=== PATIENT | female | born 1955 | race Caucasian/White ===

== ENCOUNTER 2017-03-16 07:12 | Emergency (ER) | payer OTHER ==
--- NOTE | 2017-03-16 07:56 | PHYS DOC ---
General Chief Complaint: UPPER EXTREMITY INJURY Stated Complaint: UPPER EXTREMITY PAIN Time Seen by MD: 07:13 Source: patient Exam Limitations: no limitations Problems: History of Present Illness Initial Comments Patient is a 61-year-old female who comes to the ED complaining of right arm pain. Patient states that yesterday she slipped and fell on the ice, she describes falling backwards landing on her buttock's back right elbow and right shoulder. She's complaining of pain at the mid shaft of her right humerus, also complains that it hurts to move her right shoulder. She denies numbness tingling weakness or radiating symptoms, denies head trauma loss of consciousness headache or neck pain. She says her back was sore yesterday but those symptoms are better today. [id number] ibuprofen has not been helping her pain is described as sharp and throbbing worse with movement better with rest at its worst described as severe and the pain scale. At rest symptoms are mild. Onset: yesterday Severity: severe Pain/Injury Location: right shoulder, right arm, right elbow Method of Injury: fell (she is discharged in stable) Modifying Factors: worse with jarring, worse with movement, improves with rest Allergies: Coded Allergies: No Known Drug Allergies (Unverified , 03/16/17) Past Medical History Medical History: no pertinent history Surgical History: noncontributory Social History Smoker: non-smoker Alcohol: none Drugs: none Review of Systems Constitutional: denies chills, denies diaphoresis, denies fever, denies malaise Respiratory: denies cough, denies shortness of breath Cardiovascular: denies chest pain, denies palpitations, denies syncope Gastrointestinal: denies abdominal pain, denies nausea, denies vomiting Genitourinary: denies dysuria, denies frequency Musculoskeletal: see HPI Psychiatric/Neurological: see HPI Physical Exam General Appearance: WD/WN, mild distress HEENT: other (normocephalic atraumatic) Neck: non-tender, supple Back: normal inspection, no CVA tenderness, no vertebral tenderness Shoulder: bone tenderness, limited ROM, soft tissue tenderness (exquisite tenderness at the proximal humerus no obvious deformity range of motion not tested due to fracture extremity appears to be neurovascularly intact) Neurologic/Tendon: normal sensation, responds to pain, other (no tendinopathy noted however confrontational SITS testing not undertaken due to patient intolerance of the present of comminuted fracture) Psychiatric: alert, oriented x 3 Skin: normal color, warm/dry Orders, Labs, Meds PATIENT: RADHA GARCIA ACCOUNT: [id number] : 1955 LOCATION: ER AGE: 61 SEX: F EXAM STATUS: REG ER ORD. PHYSICIAN: WILDER MCGOWAN DO REASON: pain s/p fall PROCEDURE: ELBOW RIGHT 3V Right elbow, 3 views, 03/16/2017: History: Fall, pain The images are suboptimal due to difficulty in patient positioning related to pain. A good lateral view was not obtained. No elbow fracture or dislocation is evident on this limited exam. DICTATED AND SIGNED BY: BRIAN MONTERO MD DATE: 03/16/17809 CC: KRYSTINA LIU; WILDER MCGOWAN DO ~ PATIENT: RADHA GARCIA ACCOUNT: [id number] : 1955 LOCATION: ER AGE: 61 SEX: F EXAM STATUS: REG ER ORD. PHYSICIAN: WILDER MCGOWAN DO REASON: pain s/p fall PROCEDURE: HUMERUS RIGHT Right humerus, 2 views, 03/16/2017: History: Fall, pain There is a slightly comminuted fracture of the right humeral neck extending to involve the lateral aspect of the humeral head. The major fracture fragments are not significantly displaced. A small calcification along the superior aspect of the humeral head is probably of tendinous origin. Widening of the subacromial space with a low position of the humeral head is probably due to a large associated joint effusion. No distal humeral abnormality is detected. IMPRESSION: Comminuted fracture of the right humeral neck/head as described above. DICTATED AND SIGNED BY: BRIAN MONTERO MD DATE: 03/16/17806 CC: KRYSTINA LIU; WILDER MCGOWAN DO ~ 0845: I discussed the patient over the phone with on-call orthopedic surgeon Dr. Morataya. She has agreed to see the patient in her office at 10 AM today, a shoulder immobilizer will be placed and the patient has received [place] 10 mg as well as Zofran ODT 4 mg by mouth. I discussed this with the patient and she is agreeable. Departure Time of Disposition: 08:46 Disposition: 01 HOME, SELF-CARE Diagnosis: mechanical fall, comminuted fracture right humeral Condition: STABLE Patient Instructions: Shoulder Immobilizer Additional Instructions: Leave the shoulder immobilizer in place until evaluated by Dr. Morataya. Go directly to Dr. Morataya's office upon ED discharge without any detours, nothing to eat or drink. ED staff will give you directions to the doctor's office which is in the medical office building on the [facility]. Take your discharge paperwork including a disc of your images and give them to the executive receptionist. Return to ED with new or changing symptoms. WILDER MCGOWAN DO Mar 16, 2017 07:56
[2017-03-16] MEDS ORDERED: ACET-704 PO (08:04)
--- NOTE | 2017-03-16 08:12 | RAD ---
Right humerus, 2 views, 03/16/2017: History: Fall, pain There is a slightly comminuted fracture of the right humeral neck extending to involve the lateral aspect of the humeral head. The major fracture fragments are not significantly displaced. A small calcification along the superior aspect of the humeral head is probably of tendinous origin. Widening of the subacromial space with a low position of the humeral head is probably due to a large associated joint effusion. No distal humeral abnormality is detected. IMPRESSION: Comminuted fracture of the right humeral neck/head as described above.
--- NOTE | 2017-03-16 08:14 | RAD ---
Right elbow, 3 views, 03/16/2017: History: Fall, pain The images are suboptimal due to difficulty in patient positioning related to pain. A good lateral view was not obtained. No elbow fracture or dislocation is evident on this limited exam.
[2017-03-16] MEDS ORDERED: ONDANSETRON ODT 4 MG TAB.RAPDIS PO ONE (08:15)
[2017-03-16] MEDS ORDERED: HYDROcodone/APAP 10/325 1 TAB TABLET PO ONE (08:15)
[2017-03-16 09:50] VITALS: BP 142/90
== END 2017-03-16 09:50 | disposition home or self-care (01) ==
LOC: ER 07:12
DX: S42.291A Other displaced fracture of upper end of right humerus, initial encounter for closed fracture (principal); W00.0XXA Fall on same level due to ice and snow, initial encounter; Y93.89 Activity, other specified; Y99.8 Other external cause status; Y92.89 Other specified places as the place of occurrence of the external cause
CPT/HCPCS: 29105; 73060; 73080; 99284; Q0162

== ENCOUNTER 2020-12-03 11:25 | Emergency (ER) | payer MEDICARE, OTHER ==
[~2020-12-03] VITALS: Ht 162.6 cm; Wt 70.3 kg
[~2020-12-03 11:25] MED LIST: ACET-704 PO
[2020-12-03 12:02] VITALS: BP 187/90
[2020-12-03] MEDS ORDERED: ORPH-16 PO (12:11)
[2020-12-03] MEDS ORDERED: CLON0.1T PO (12:11)
--- NOTE | 2020-12-03 12:13 | PHYS DOC ---
Past History Past Medical History: No Pertinent History Past Surgical History: , Tubal ligation Alcohol Use: Occasionally Drug Use: None General Adult EDM: Chief Complaint: MULTIPLE COMPLAINTS HPI: HPI: Patient is a [age] year old [sex] who presents with [] Review of Systems: Review of Systems: Constitutional: Denies fever or chills Eyes: Denies redness or eye pain HENT: Denies nasal congestion or sore throat Respiratory: Denies cough or shortness of breath Cardiovascular: Denies chest pain or palpitations GI: Denies abdominal pain, nausea, or vomiting : Denies dysuria or hematuria Musculoskeletal: Denies back pain or joint pain Integument: Denies rash or skin lesions Neurologic: Denies headache, focal weakness or sensory changes Complete systems were reviewed and found to be within normal limits, except as documented in this note. Allergies: Allergies: Allergies Coded Allergies Type Severity Reaction Last Updated Verified No Known Drug Allergies 03/16/17 No Physical Exam: PE: Constitutional: Well developed, well nourished, no acute distress, non-toxic appearance. [] HENT: Normocephalic, atraumatic, bilateral external ears normal, oropharynx gaby st, no oral exudates, nose normal. [] Eyes: PERRLA, EOMI, conjunctiva normal, no discharge. [] Neck: Normal range of motion, no tenderness, supple, no stridor. [] Cardiovascular:Heart rate regular rhythm, no murmur [] Lungs & Thorax: Bilateral breath sounds clear to auscultation [] Abdomen: Bowel sounds normal, soft, no tenderness, no masses, no pulsatile masses. [] Skin: Warm, dry, no erythema, no rash. [] Back: No tenderness, no CVA tenderness. [] Extremities: No tenderness, no cyanosis, no clubbing, ROM intact, no edema. [] Neurologic: Alert and oriented X 3, normal motor function, normal sensory function, no focal deficits noted. [] Psychologic: Affect normal, judgement normal, mood normal. [] EKG: EKG: [] Radiology/Procedures: Radiology/Procedures: [] Heart Score: C/O Chest Pain: N/A Course & Med Decision Making: Course & Med Decision Making Pertinent Labs and Imaging studies reviewed. (See chart for details) [] Dragon Disclaimer: Dragon Disclaimer: This electronic medical record was generated, in whole or in part, using a voice recognition dictation system. Departure Departure: Impression: Primary Impression: Right thigh pain Additional Impression: Hypertension Qualified Codes: I10 - Essential (primary) hypertension Disposition: HOME / SELF CARE / HOMELESS Condition: STABLE Referrals: PATRICIO GARCIA (PCP) ISRA WILLIS MD Patient Instructions: Elastic Bandage and RICE, Hypertension, [id number], Muscle Strain, [id number] Additional Instructions: ICE area of discomfort 20 min on then leave off next 20 min off for next few days. Take over the counter Tylenol and/or Ibuprofen for pain or discomfort. Keep a blood pressure journal: Take blood pressure 2x daily and record the number in a journal. Take with same cuff, same time, and same circumstance. Scripts Clonidine Hcl (CLONIDINE HCL) 0.1 Mg Tablet 0.1 MG PO BID PRN for ELEVATED BP, SEE COMMENTS, #20 TAB Take for systolic (upper number) above 175 or for diastolic (lower number) above 105. Prov: GUILHERME SHAHID DO 12/03/20 Orphenadrine Citrate (ORPHENADRINE CITRATE) 100 Mg Tablet.er 1 TAB PO BID PRN for MUSCLE PAIN, #14 TAB 0 Refills Prov: GUILHERME SHAHID DO 12/03/20 GUILHERME SHAHID DO Dec 03, 2020 12:13
== END 2020-12-03 12:52 | disposition home or self-care (01) ==
LOC: ER 11:25
DX: M79.651 Pain in right thigh (principal); I10 Essential (primary) hypertension
CPT/HCPCS: 99283